=== PATIENT | female | born 1970 | race Caucasian/White ===

== ENCOUNTER 2023-02-27 10:51 | Day surgery (SDC) | payer OTHER ==
[~2023-02-27] VITALS: Ht 154.9 cm; Wt 65.3 kg
[2023-02-27] MEDS ORDERED: fentaNYL citrate 0.05 MG/ML VIAL ONE (11:33)
[2023-02-27] MEDS ORDERED: LIDOCAINE 2% 100 MG/5 ML UJET TP ONE (11:33)
== END 2023-02-27 13:15 | disposition home or self-care (01) ==
LOC: MOR 10:51 → MMU 10:52 → MOR 13:15
PROVIDERS: ATTEND Internal Medicine Gastroenterology
DX: Z12.11 Encounter for screening for malignant neoplasm of colon (principal); K64.9 Unspecified hemorrhoids; R94.5 Abnormal results of liver function studies; Z79.899 Other long term (current) drug therapy; Z20.822 Contact with and (suspected) exposure to COVID-19
CPT/HCPCS: 45378; 87426; J3010